=== PATIENT | male | born 1955 ===

== ENCOUNTER → 2018-01-10 | Outpatient (CLI) | payer OTHER ==
--- NOTE | 2018-01-10 13:39 | XR ---
EXAMINATION TYPE: XR KUB DATE OF EXAM: 01/10/2018 COMPARISON: 12/22/2017 HISTORY: Ureteral calculus TECHNIQUE: One view abdominal series FINDINGS: The osseous structures are intact. The bowel gas pattern is nonspecific. Calcifications in the pelvi s are stable and likely vascular. Arthropathy of the hips. Retained fecal debris throughout the right colon. IMPRESSION: 1. Pelvic calculi previously seen are stable. Calculus seen along the right paraspinal region on the previous exam is not as well seen on today's exam. There is a density which appears less dense at a s imilar location on today's exam but may represent bowel content rather than residual renal calculus.
== END | disposition home or self-care (01) ==
LOC: RADXRMAIN 12:28
PROVIDERS: ATTEND Urology
DX: N20.0 Calculus of kidney (principal)
CPT/HCPCS: 74018

== ENCOUNTER → 2022-05-19 | Outpatient (CLI) | payer MEDICARE, OTHER ==
[2022-05-19 18:02] LABS: African American GFR (CKD) >90 (>60 ml/min/1.73 sqM); Blood Urea Nitrogen 14 mg/dL (9-20); Non-African American GFR(CKD) 84 (>60 ml/min/1.73 sqM)
--- NOTE | 2022-05-20 00:32 | CT ---
EXAMINATION TYPE: CT sinus wo con DATE OF EXAM: 05/19/2022 COMPARISON: None available HISTORY: chronic sinusitis CT DLP: combined 2869.70 mGycm. Automated Exposure Control for Dose Reduction was Utilized. TECHNIQUE: CT scan of the sinuses is performed without contrast, axial images are obtained, coronal r eformatted images are also reviewed. FINDINGS: Deviated bony nasal septum convex to the right side. Hypoplastic right middle turbinate with a slight remodeling of the right inferior turbinate. Minimal mucosal thickening of the right inferior meatus. Unremarkable left middle and left inferior turbinates. Patent infundibulum bilaterally. Slight obliteration of the superior aspect of the right ostiomeatal complex by the hypoplastic right middle turbinate. Minimal mucosal thickening of the alveolar recess of the left maxillary sinus. Unremarkable maxillary sinuses otherwise. Unremarkable frontal sinus, ethmoid air cells and sphenoid sinus. Patent sphenoethmoidal recesses. Mi nimal opacification of the left inferior mastoid air cells. Unremarkable nasopharynx. CT scan of the brain is dictated separately. IMPRESSION: Minimal mucosal thickening of the left maxillary sinus, otherwise unremarkable paranasal sinuses. Dev iated bony nasal septum and other findings as described above.
--- NOTE | 2022-05-20 00:48 | CT ---
EXAMINATION TYPE: CT brain wo/w con DATE OF EXAM: 05/19/2022 COMPARISON: None available HISTORY: L eye double vision x9 days. poss cranial nerve issue CT DLP: combined 2869.70 mGycm Automated exposure control for dose reduction was used. TECHNIQUE: CT scan of the brain is performed without and with IV contrast administration. FINDINGS: Brain volume loss changes, possibly age related. Subtle bilateral cerebral white matter hypodensities , possibly representing minimal chronic ischemic changes. No acute intracranial hemorrhage. No gross acute cortical infarct. No midline shift, herniation or ve ntriculomegaly. Unremarkable roldan-white matter differentiation, basal cisterns, sella and CP angles. No gross space-occupying lesion, vasogenic edema or mass effect. No area of abnormal enhancement, men ingeal thickening or hyperenhancement. Patent major intracranial vessels. Unremarkable orbits. Minimal mucosal thickening of the maxillary sinuses. Clear mastoid air cells. No aggressive bone lesion. IMPRESSION: No acute intracranial abnormality or gross space-occupying lesion. Incidental findings as described a corey. Further MRI assessment can be considered if clinically required.
== END | disposition home or self-care (01) ==
LOC: RADCTMAIN 17:19
PROVIDERS: ATTEND Ophthalmology
DX: H57.02 Anisocoria (principal); G52.9 Cranial nerve disorder, unspecified; H49.02 Third [oculomotor] nerve palsy, left eye; H53.2 Diplopia
CPT/HCPCS: 82565; 84520; 70470; 36415; 70486; Q9967

== ENCOUNTER → 2022-09-10 | Outpatient (CLI) | payer MEDICARE ==
[2022-09-10 14:32] LABS: Basophils # (A) 0.03 X 10*3/uL (0.00-0.10); Basophils % (A) 0.5 %; Eosinophils # (A) 0.09 X 10*3/uL (0.04-0.35); Eosinophils % (A) 1.4 %; HCT 48.5 % (39.6-50.0); HGB 16.2 g/dL (13.0-17.0); Immature Grans, Automated 0.8 %; Lymphocytes # (A) 2.27 X 10*3/uL (0.90-5.00); Lymphocytes % (A) 34.4 %; MCH 29.4 pg (27.0-32.0); MCHC 33.4 g/dL (32.0-37.0); Mean Platelet Volume 10.8 fL (9.5-12.2); Monocytes # (A) 0.55 X 10*3/uL (0.20-1.00); Monocytes % (A) 8.3 %; NRBC Per 100 WBC 0 /100 WBCS (0.0-0.0); Neutrophils % (A) 54.6 %; Platelet Count 259 X 10*3/uL (140-440); RBC 5.51 X 10*6/uL (4.40-5.60); RDW 12.1 % (11.5-14.5); WBC 6.59 X 10*3/uL (4.50-10.00)
[2022-09-10 14:45] LABS: ALT 39 U/L (10-49); AST 25 U/L (14-35); African American GFR (CKD) 73.1 (60.0-200.0); Albumin 4.6 g/dL (3.8-4.9); Alkaline Phosphatase 73 U/L (41-126); BUN/Creat Ratio 17.08 Ratio (12.00-20.00); Blood Urea Nitrogen 20.5 mg/dL (9.0-27.0); Calcium 9.4 mg/dL (8.7-10.3); Carbon Dioxide 26.9 mmol/L (20.0-27.5); Chloride 103 mmol/L (96-109); Chol/HDL Ratio 4.89 Ratio; Globulin 2.7 g/dL (1.6-3.3); Glucose 99 mg/dL (70-110); LDL Cholesterol,Calculated 108.3 mg/dL (0.0-131.0); Non-African American GFR(CKD) 63.1 (60.0-200.0); Potassium 4.8 mmol/L (3.5-5.5); Sodium 139 mmol/L (135-145); Total Protein 7.3 g/dL (6.2-8.2)
== END | disposition home or self-care (01) ==
LOC: LABWHC1 08:06
PROVIDERS: ATTEND Internal Medicine
DX: Z12.5 Encounter for screening for malignant neoplasm of prostate (principal); E78.5 Hyperlipidemia, unspecified; Z11.59 Encounter for screening for other viral diseases
CPT/HCPCS: 36415; 80053; 80061; 84153; 84443; 85025; 86803

== ENCOUNTER → 2024-09-20 | Outpatient (CLI) | payer MEDICARE, OTHER ==
--- NOTE | 2024-09-20 11:09 | XR ---
EXAMINATION TYPE: XR chest 2V DATE OF EXAM: 09/20/2024 9:38 AM COMPARISON: Chest radiographs from 09/20/2024 CLINICAL INDICATION: Male, 68 years old with history of R06.02 Shortness of breath R07.9 chest pain; [facility] TECHNIQUE: XR chest 2V Frontal and lateral views of the chest. FINDINGS: Lungs/Pleura: There is flattening of the diaphragm with increased lucency of the lungs. No evidence o f pneumothorax, pleural effusion or focal consolidation. Pulmonary vascularity: Unremarkable. Heart/mediastinum: Cardiomediastinal silhouette is unremarkable. Musculoskeletal: No acute osseous pathology. IMPRESSION: 1. No acute cardiopulmonary disease process. 2. COPD changes. [facility], , 09/20/2024 11:07 AM
== END | disposition home or self-care (01) ==
LOC: RADXRMAIN 09:21
PROVIDERS: ATTEND Internal Medicine
DX: J44.9 Chronic obstructive pulmonary disease, unspecified (principal)
CPT/HCPCS: 71046

== ENCOUNTER → 2024-09-20 | Outpatient (CLI) | payer MEDICARE ==
[2024-09-20 16:05] LABS: Basophils # (A) 0.05 X 10*3/uL (0.00-0.10); Basophils % (A) 0.7 %; Eosinophils # (A) 0.12 X 10*3/uL (0.04-0.35); Eosinophils % (A) 1.6 %; HCT 49.3 % (39.6-50.0); Lymphocytes # (A) 1.94 X 10*3/uL (0.90-5.00); Lymphocytes % (A) 25.6 %; MCH 29.4 pg (27.0-32.0); MCHC 32.5 g/dL (32.0-37.0); MCV 90.5 FL (80.0-97.0); Monocytes # (A) 0.58 X 10*3/uL (0.20-1.00); Monocytes % (A) 7.7 %; NRBC Per 100 WBC 0 X 10*3/uL (0.00-0.01); Neutrophils # (A) 4.84 X 10*3/uL (1.80-7.70); Neutrophils % (A) 63.9 %; Platelet Count 245 X 10*3/uL (140-440); RBC 5.45 X 10*6/uL (4.40-5.60); RDW 12.7 % (11.5-14.5); WBC 7.57 X 10*3/uL (4.50-10.00)
[2024-09-20 16:44] LABS: ALT 27 U/L (10-49); AST 24 U/L (14-35); Albumin 4.7 g/dL (3.8-4.9); Albumin/Globulin Ratio 2.04 Ratio (1.60-3.17); Alkaline Phosphatase 71 U/L (41-126); BUN/Creat Ratio 16.82 Ratio (12.00-20.00); Blood Urea Nitrogen 18.5 mg/dL (9.0-27.0); Calcium 9.6 mg/dL (8.7-10.3); Carbon Dioxide 27.3 mmol/L (21.6-31.8); Chloride 106 mmol/L (96-109); Chol/HDL Ratio 4.41 Ratio; Globulin 2.3 g/dL (1.6-3.3); Glucose 91 mg/dL (70-110); LDL Cholesterol,Calculated 97.3 mg/dL (0.0-131.0); Potassium 4.7 mmol/L (3.5-5.5); Prostate Specific Antigen 0.82 ng/mL (0.000-4.500); Sodium 143 mmol/L (135-145); Total Bilirubin 0.5 mg/dL (0.3-1.2); Uric Acid 7.3 mg/dL (3.7-8.7)
== END | disposition home or self-care (01) ==
LOC: LABWHC1 08:36
PROVIDERS: ATTEND Internal Medicine
CPT/HCPCS: 36415; 80053; 80061; 82330; 84153; 84443; 84550; 85025

== ENCOUNTER → 2024-11-06 | Outpatient (CLI) | payer MEDICARE, OTHER ==
--- NOTE | 2024-11-06 17:37 | CA ---
Stress Echo Report Rod Hewitt Age: 69 Gender: M : 1955 Exam Date: 11/06/2024 10:30 Exam Location: [facility] Stress Ht (in): 65 Wt (lb): 160 Ordering Physician: Chirag Danielle DO Referring Physician: CHIRAG DANIELLE,, [employer]: Fernie Altamirano Technologist Procedure CPT: Indication: R06.09 Dyspnea on exertion ICD-9 Codes: Rhythm: Patient History: Cardiac Medications: ATORVASTATIN, ASPIRIN Medications in past 24 hours: Contrast: N/A Stress Results Protocol: Kiko Total dose(mL): NA Exercise Duration (min:sec): 4:[address] Depression (mm): Angina Score: Francis Score: METS: 6.4 Resting HR: 83 Resting BP: 152 / 84 Peak HR: 136 Peak BP: 200 / 81 Max Predicted HR: 152 89 % Max Predicted HR Target HR: 129 Double Product: 68097 Stress Summary: BP Response: Reason for Termination: Reached target heart rate or work-load Cardiac Symptoms: Dyspnea ECG Analysis Resting ECG: Normal sinus rhythm normal axis normal intervals Stress ECG: Patient exercised on Kiko protocol for 4 and half minutes achieving 6 metastases 85% of predicted maximum heart rate without chest pain or diagnostic ST segment depression Arrhythmia: Echo Analysis Resting Echo: Normal left ventricular size wall motion systolic function Peak Echo Analysis: Normal hyperdynamic response of all segments of myocardium noted MEASUREMENTS (Male/Female) Normal Values CONCLUSIONS Poor exercise tolerance Negative stress test by EKG criteria Negative stress echo Dr. Arben Otoole MD (Electronically Signed) Final Date: 06 November 2024 17:36
== END | disposition home or self-care (01) ==
LOC: RADNMMAIN 10:12
PROVIDERS: ATTEND Internal Medicine
DX: R06.09 Other forms of dyspnea (principal)
CPT/HCPCS: 93351